=== PATIENT | female | born 1990 | race Hispanic/Latino ===

== ENCOUNTER 2018-10-13 14:11 | Emergency (ER) | payer BC ==
[2018-10-13] MEDS ORDERED: Morphine 4 MG/ML VIAL ONE ×2 (14:30→15:28)
[2018-10-13] MEDS ORDERED: Ketamine 50 MG/ML (10ML VIAL) ONE (14:54)
--- NOTE | 2018-10-13 17:47 | RAD ---
Left knee 4 views: 10/13/2018 COMPARISON: None HISTORY: Injury, trauma, pain FINDINGS: There is soft tissue swelling anterior to the patella. There is a small knee joint effusion . No displaced fracture or evidence of dislocation is apparent. IMPRESSION: Soft tissue swelling and knee joint effusion with no displaced fracture or dislocation se en.
--- NOTE | 2018-10-13 17:48 | RAD ---
Patellar sunrise view left knee: 10/13/2018 COMPARISON: None HISTORY: Fall, trauma, pain, reduced patellar dislocation FINDINGS: The patellar sunrise view demonstrates no evidence for patellar dislocation. IMPRESSION: No evidence for dislocation of the left patella. The provided history is patellar disloca tion status post reduction. Given recent patellar dislocation, follow-up left knee MRI is recommended.
== END 2018-10-13 17:58 | disposition home or self-care (01) ==
LOC: ERS 14:11
DX: S83.005A Unspecified dislocation of left patella, initial encounter (principal); W19.XXXA Unspecified fall, initial encounter
CPT/HCPCS: 27560; 96374; 96376; 99152; J2270

== ENCOUNTER 2019-10-23 13:35 | Outpatient (CLI) | payer BC ==
--- NOTE | 2019-10-23 14:11 | MMO ---
Bilateral MAMMO Bilat Diag [facility]. CLINICAL HISTORY: Patient is 29 years old and is seen for diagnostic exam. The patient has no family history of breast cancer. The patient has no personal history of cancer. VIEWS: The views performed were: bilateral craniocaudal with tomosynthesis; bilateral mediolateral oblique with tomosynthesis; and bilateral mediolateral with tomosynthesis. FILMS COMPARED: The present examination has been compared to a prior imaging study performed at [facility] on 10/23/2019. This study has been interpreted with the assistance of computer-aided detection. MAMMOGRAM FINDINGS: There are scattered fibroglandular densities. There are no suspicious masses, suspicious calcifications, or new areas of architectural distortion. There are no mammographic or sonographic abnormalities in the area of palpable concern. The patient is referred back to her clinician. Negative imaging findings should not preclude biopsy if clinical findings are suspicious. IMPRESSION: THERE ARE NO MAMMOGRAPHIC OR SONOGRAPHIC ABNORMALITIES IN THE AREA OF PALPABLE CONCERN. THE PATIENT IS REFERRED BACK TO HER CLINICIAN. NEGATIVE IMAGING FINDINGS SHOULD NOT PRECLUDE BIOPSY IF CLINICAL FINDINGS ARE SUSPICIOUS. THE RESULTS OF THIS EXAM WERE SENT TO THE PATIENT. ACR BI-RADS Category 1 - Negative MAMMOGRAPHY NOTE: 1. A negative mammogram report should not delay a biopsy if a dominant of clinically suspicious mass is present. 2. Approximately 10% to 15% of breast cancers are not detected by mammography. 3. Adenosis and dense breasts may obscure an underlying neoplasm. Reported by: YAMILA ALBERT MD Electonically Signed: [id number]
== END 2019-10-23 13:36 | disposition home or self-care (01) ==
LOC: BICMAMMO 13:35
PROVIDERS: ATTEND Obstetrics & Gynecology
DX: N63.20 Unspecified lump in the left breast, unspecified quadrant (principal)
CPT/HCPCS: 77066; G0279

== ENCOUNTER 2023-06-28 16:27 | Outpatient (CLI) | payer OTHER ==
[2023-06-28 17:34] LABS: BHCG - Serum Negative (NEGATIVE); Pregs Control Background? CLEAR/WHITE (CLR/WHITE); Pregs Control Bar Appear? YES (CONTROL BAR)
[2023-06-28 17:38] LABS: #Eosinphils 0.2 10x3/uL (0.0-0.5); #Monocytes 0.5 10x3/uL (0.0-1.1); #Neutrophils 7.3 10x3/uL (1.5-8.4); %Basophils 0.3 % (0.0-2.0); %Eosinophils 2.4 % (0.0-6.0); %Lymphocytes 19.5 % (18.0-47.0); %Neutrophils 72.4 % (40.0-75.0); Hematocrit 36.9 % (34.9-44.5); Hemoglobin 12.1 g/dL (12.0-15.5); Mean Corpuscular HGB CONC 32.8 g/dL (32.0-36.0); Mean Corpuscular Hemoglobin 29.5 pg (27.0-33.0); Mean Platelet Volume 10.8 fl (7.4-10.4); Platelet Count 280 10x3/uL (150-450); RBC Distribution Width 14.4 % (11.5-14.5)
[2023-06-28 17:43] LABS: ALT (SGPT) 35 U/L (8-55); AST (SGOT) 17 U/L (5-34); Albumin 4.2 g/dL (3.5-5.0); Alkaline Phosphatase 117 U/L (40-110); Anion Gap 15 mmol/L (10-20); BUN (Urea Nitrogen) 10 mg/dL (7.0-18.7); Bilirubin, Direct 0.2 mg/dL (0.1-0.3); Bilirubin, Total 0.6 mg/dL (0.2-1.2); Calc. Creatinine Clearance 0 mL/min (70-130); Calcium 8.8 mg/dL (7.8-10.44); Carbon Dioxide 23 mmol/L (22-29); Chloride 107 mmol/L (98-107); Estimated GFR 106; Glucose 102 mg/dL (70-105); Protein, Total 7.2 g/dL (6.0-8.3); Sodium 141 mmol/L (136-145)
== END 2023-06-28 16:28 | disposition home or self-care (01) ==
LOC: LABBT 16:27
PROVIDERS: ATTEND Surgery
DX: Z01.812 Encounter for preprocedural laboratory examination (principal); K80.20 Calculus of gallbladder without cholecystitis without obstruction
CPT/HCPCS: 80048; 80076; 84703; 85025

== ENCOUNTER 2023-07-05 08:28 | Day surgery (SDC) | payer OTHER ==
[2023-06-28 16:59] VITALS: BMI 29.2
[2023-07-05] MEDS ORDERED: PROPOFOL 20 ML ONE (09:52)
[2023-07-05] MEDS ORDERED: Ondansetron PF 4 MG/2 ML Vial ONE (09:57)
[2023-07-05] MEDS ORDERED: fentaNYL PF 100 MCG/2 ML SYRINGE ONE (10:34)
[2023-07-05] MEDS ORDERED: Indocyanine Green 25 MG/10 ML VIAL ONE (10:35)
[2023-07-05] MEDS ORDERED: Bupivacaine 0.25% HCL 30 ML VIAL ONE (10:35)
[2023-07-05] MEDS ORDERED: EPINEPHrine 1 MG/ML VIAL ONE (10:35)
[2023-07-05] MEDS ORDERED: CEFAZOLIN 2 GM VIAL ONE (10:48)
[2023-07-05] MEDS ORDERED: Sodium Chloride 0.9% 100 ML ONE (10:48)
[2023-07-05] MEDS ORDERED: Rocuronium Bromide 10 MG/ML (10ML VIAL) ONE (11:06)
[2023-07-05] MEDS ORDERED: Lidocaine 1% PF 5 ML VIAL ONE (11:06)
[2023-07-05] MEDS ORDERED: Dexamethasone 4 mg/ml Vial ONE (11:13)
[2023-07-05] MEDS ORDERED: ePHEDrine Sulfate 50 MG/10 ML VIAL ONE (11:27)
[2023-07-05] MEDS ORDERED: Ketorolac Tromethamine 30 MG (1 mL) VIAL ONE (11:36)
[2023-07-05] MEDS ORDERED: SUGAMMADEX SODIUM 200 MG/2 ML VIAL ONE (11:46)
[2023-07-05] MEDS ORDERED: HYDROmorphone 0.5 MG/0.5 ML SYRINGE ONE ×2 (12:09→12:23)
[2023-07-05] MEDS ORDERED: fentaNYL 50 mcg/mL 1 mL Vial ONE ×2 (12:38→12:57)
[2023-07-05] MEDS ORDERED: HYDROcodone/Acetaminophen 5/325 mg Tablet ONE (14:09)
== END 2023-07-05 14:29 | disposition home or self-care (01) ==
LOC: SDC 08:28
PROVIDERS: ATTEND Surgery
PROC: 0FT44ZZ Resection of Gallbladder, Percutaneous Endoscopic Approach (ICD-10-PCS; principal; 2023-07-05)
DX: K80.10 Calculus of gallbladder with chronic cholecystitis without obstruction (principal); G43.909 Migraine, unspecified, not intractable, without status migrainosus; Z79.1 Long term (current) use of non-steroidal anti-inflammatories (NSAID)
CPT/HCPCS: 88304; C1776; J0171; J0665; J1100; J1170; J1885; J2405; J2704; J3010; J3490